=== PATIENT | male | born 1965 | race Caucasian/White ===

== ENCOUNTER 2016-12-10 09:54 | Emergency (ER) | payer OTHER ==
[2016-12-10] MEDS ORDERED: MECLIZINE 12.5 MG TAB PO STA (10:06)
[2016-12-10] MEDS ORDERED: SODIUM CHLORIDE 0.9% 1,000 ML IV STA (10:06)
[2016-12-10 10:07] VITALS: RESP 18
[2016-12-10 10:30] LABS: Basophils % (A) 0 %; CH 30.3; Eosinophils # (A) 0.9 k/uL (0-0.7); Eosinophils % (A) 7 %; HGB 15.2 gm/dL (13.0-17.5); Luc # (Auto) 0.13; Luc % (Auto) 1; Lymphocytes # (A) 1.7 k/uL (1.0-4.8); Lymphocytes % (A) 14 %; MCH 30.1 pg (25.0-35.0); MCHC 33.7 g/dL (31.0-37.0); MCV 89.3 fL (80.0-100.0); Mean Platelet Volume 7.1; Monocytes # (A) 0.7 k/uL (0-1.0); Monocytes % (A) 6 %; Neutrophils # (A) 9.2 k/uL (1.3-7.7); Neutrophils % (A) 73 %; RBC 5.04 m/uL (4.30-5.90); RDW 13.6 % (11.5-15.5); WBC 12.7 k/uL (3.8-10.6); WBC (Perox) 12.73
[2016-12-10 10:44] LABS: ALT 89 U/L (21-72); AST 41 U/L (17-59); Alkaline Phosphatase 108 U/L (38-126); Anion Gap 17 mmol/L; Blood Urea Nitrogen 20 mg/dL (9-20); Calcium 10.3 mg/dL (8.4-10.2); Carbon Dioxide 27 mmol/L (22-30); Chloride 95 mmol/L (98-107); Glucose 130 mg/dL (74-99); Non-African American GFR(MDRD) >60 (>60 ml/min/1.73 sqM); Potassium 3.8 mmol/L (3.5-5.1); Sodium 139 mmol/L (137-145); Total Bilirubin 0.7 mg/dL (0.2-1.3); Total Protein 8.3 g/dL (6.3-8.2)
--- NOTE | 2016-12-10 10:52 | ED ---
Dizziness HPI - General Chief Complaint: Dizziness Stated Complaint: DIZZINESS, HOT AND COLD, VOMITING BLOOD Time Seen by Provider: 12/10/16 10:00 Source: patient, family, RN notes reviewed Mode of arrival: wheelchair Limitations: no limitations - History of Present Illness Initial Comments: This is a 51-year-old male who had a recent diagnosis of Parkinson's disease and diabetes who had an onset last night of not feeling well. He developed dizziness and lightheadedness. Off-balance had nausea vomiting he did vomit 3 times today. He states he has chronic chest pain today is nothing out of the ordinary. He denies any recent cold or flu he states he does get more dizzy when he moves his head and gets up from a sitting position or lying position. No focal deficits he does have tremors associated with his Parkinson's disease. He denies any other complaints patient is very hard of hearing. The patient does state that when he vomited he vomited up some red material but he believes is secondary to berries he ate last night. MD Complaint: dizziness, lightheadedness, difficulty walking - Related Data Home Medications Medication Instructions Recorded Confirmed Amoxicillin/Potassium Clav 1 tab PO Q12HR 12/10/16 12/10/16 [Augmentin 875-125 Tablet] Aspirin EC [Ecotrin Low Dose] 81 mg PO DAILY 12/10/16 12/10/16 Lisinopril-Hctz 20-25 mg 1 tab PO DAILY 12/10/16 12/10/16 [Zestoretic 20-25] Primidone [Mysoline] 50 mg PO BID 12/10/16 12/10/16 metFORMIN HCL 1,000 mg PO BID 12/10/16 12/10/16 Previous Rx's Medication Instructions Recorded Meclizine [Antivert] 25 mg PO TID #20 tab 12/10/16 Pantoprazole Sodium [Protonix] 20 mg PO AC-BID #14 tablet. 12/10/16 Allergies Allergy/AdvReac Type Severity Reaction Status Date / Time No Known Allergies Allergy Verified 12/10/16 10:28 Review of Systems ROS Statement: Those systems with pertinent positive or pertinent negative responses have been documented in the HPI. ROS Other: All systems not noted in ROS Statement are negative. Past Medical History Past Medical History: Diabetes Mellitus, Hypertension Additional Past Medical History / Comment(s): Parkinsons, diverticulitis, [place] History of Any Multi-Drug Resistant Organisms: None Reported Additional Past Surgical History / Comment(s): c5/c6 cadaver bone, vasectomy Past Psychological History: Anxiety, Depression Smoking Status: Former smoker Past Alcohol Use History: None Reported Past Drug Use History: None Reported General Exam - General Exam Comments Initial Comments: Is a well-developed well-nourished awake alert oriented 3 male he is very anxious he does demonstrate tremors consistent with Parkinson's disease Limitations: no limitations General appearance: alert, anxious Head exam: Present: atraumatic, normocephalic, normal inspection Eye exam: Present: normal appearance, PERRL, EOMI. Absent: scleral icterus, conjunctival injection, periorbital swelling ENT exam: Present: normal exam, mucous membranes moist Neck exam: Present: normal inspection. Absent: tenderness, meningismus, lymphadenopathy Respiratory exam: Present: normal lung sounds bilaterally. Absent: respiratory distress, wheezes, rales, rhonchi, stridor Cardiovascular Exam: Present: regular rate, normal rhythm, normal heart sounds. Absent: systolic murmur, diastolic murmur, rubs, gallop, clicks GI/Abdominal exam: Present: soft, normal bowel sounds. Absent: distended, tenderness, guarding, rebound, rigid Extremities exam: Present: full ROM, normal capillary refill, other (Tremors as stated above). Absent: tenderness, pedal edema, joint swelling, calf tenderness Back exam: Present: normal inspection Neurological exam: Present: alert, oriented X3, CN II-XII intact Psychiatric exam: Present: normal affect, anxious Skin exam: Present: warm, dry, intact, normal color. Absent: rash Course Vital Signs 12/10/16 10:00 Temperature 97.1 F L Pulse Rate 92 Respiratory 18 Rate Blood Pressure 163/116 O2 Sat by Pulse 100 Oximetry Medical Decision Making - Medical Decision Making Patient is feeling much improved his symptoms have totally resolved he will be discharged with appropriate medication the vomiting the patient did experience with the red material is likely Berries he will be placed on a short course of Prilosec. - Lab Data Result diagrams: 12/10/16 10:15 12/10/16 10:15 Lab Results 12/10/16 12/10/16 12/10/16 Range/Units 10:15 10:15 10:15 WBC 12.7 H (3.8-10.6) k/uL RBC 5.04 (4.30-5.90) m/uL Hgb 15.2 (13.0-17.5) gm/dL Hct 45.0 (39.0-53.0) % MCV 89.3 (80.0-100.0) fL MCH 30.1 (25.0-35.0) pg MCHC 33.7 (31.0-37.0) g/dL RDW 13.6 (11.5-15.5) % Plt Count 416 (150-450) k/uL Neutrophils % 73 % Lymphocytes % 14 % Monocytes % 6 % Eosinophils % 7 % Basophils % 0 % Neutrophils # 9.2 H (1.3-7.7) k/uL Lymphocytes # 1.7 (1.0-4.8) k/uL Monocytes # 0.7 (0-1.0) k/uL Eosinophils # 0.9 H (0-0.7) k/uL Basophils # 0.0 (0-0.2) k/uL Sodium 139 (137-145) mmol/L Potassium 3.8 (3.5-5.1) mmol/L Chloride 95 L (98-107) mmol/L Carbon Dioxide 27 (22-30) mmol/L Anion Gap 17 mmol/L BUN 20 (9-20) mg/dL Creatinine 0.96 (0.66-1.25) mg/dL Est GFR (MDRD) Af Amer >60 (>60 ml/min/1.73 sqM) Est GFR (MDRD) Non-Af >60 (>60 ml/min/1.73 sqM) Glucose 130 H (74-99) mg/dL Calcium 10.3 H (8.4-10.2) mg/dL Magnesium 2.0 (1.6-2.3) mg/dL Total Bilirubin 0.7 (0.2-1.3) mg/dL AST 41 (17-59) U/L ALT 89 H (21-72) U/L Alkaline Phosphatase 108 (38-126) U/L Total Creatine Kinase 322 H (55-170) U/L CK-MB (CK-2) 3.1 H* (0.0-2.4) ng/mL CK-MB (CK-2) Rel Index 1.0 Troponin I <0.012 (0.000-0.034) ng/mL Total Protein 8.3 H (6.3-8.2) g/dL Albumin 4.8 (3.5-5.0) g/dL - Radiology Data Radiology results: report reviewed, image reviewed (I did review the imaging and report. No acute findings.) Disposition Clinical Impression: Benign paroxysmal positional vertigo, Gastritis Disposition: HOME SELF-CARE Condition: Good Instructions: Dizziness (ED), Benign Paroxysmal Positional Vertigo (ED), Gastritis (ED) Additional Instructions: Continue with your current medications, increase oral fluids Prescriptions: Meclizine [Antivert] 25 mg PO TID #20 tab Pantoprazole Sodium [Protonix] 20 mg PO AC-BID #14 tablet.
[2016-12-10 11:00] LABS: Creatine Kinase 322 U/L (55-170)
[2016-12-10 11:13] LABS: Troponin I <0.012 ng/mL (0.000-0.034)
--- NOTE | 2016-12-10 11:14 | CT ---
EXAMINATION TYPE: CT brain wo con DATE OF EXAM: 12/10/2016 10:41 AM COMPARISON: NONE HISTORY: Dizziness. Vomiting blood. CT DLP: 1029.90 mGycm Automated exposure control for dose reduction was used. FINDINGS: There is no acute intracranial hemorrhage, mass effect, or midline shift identified. The ventricles and sulci are within normal limits in size. The globes are intact and the visualized sinuses are rem arkable for possible mucus retention cyst in the sphenoid, there is inflammatory changes within the e thmoid air cells, maxillary sinus, difficult to exclude underlying polyp. IMPRESSION: No acute intracranial hemorrhage, mass effect, or midline shift is seen. Additional findings above.
--- NOTE | 2016-12-10 11:15 | XR ---
EXAMINATION TYPE: XR chest 2V DATE OF EXAM: 12/10/2016 10:41 AM COMPARISON: NONE HISTORY: Dizziness and nausea TECHNIQUE: Frontal and lateral views of the chest are obtained. FINDINGS: There is no focal air space opacity, pleural effusion, or pneumothorax seen. The cardiac silhouette size is within normal limits. Prominent lung volume could be indicative of underlying CO PD. There are overlying cardiac leads. The stomach change noted in the cervical spine. The osseous st ructures are intact. IMPRESSION: No acute cardiopulmonary process.
[2016-12-10 11:27] LABS: Creatine Kinase MB 3.1 ng/mL (0.0-2.4)
--- NOTE | 2016-12-10 12:36 | ED ---
Medical Decision Making - Lab Data Result diagrams: 12/10/16 10:15 12/10/16 10:15 Lab Results 12/10/16 12/10/16 12/10/16 Range/Units 10:15 10:15 10:15 WBC 12.7 H (3.8-10.6) k/uL RBC 5.04 (4.30-5.90) m/uL Hgb 15.2 (13.0-17.5) gm/dL Hct 45.0 (39.0-53.0) % MCV 89.3 (80.0-100.0) fL MCH 30.1 (25.0-35.0) pg MCHC 33.7 (31.0-37.0) g/dL RDW 13.6 (11.5-15.5) % Plt Count 416 (150-450) k/uL Neutrophils % 73 % Lymphocytes % 14 % Monocytes % 6 % Eosinophils % 7 % Basophils % 0 % Neutrophils # 9.2 H (1.3-7.7) k/uL Lymphocytes # 1.7 (1.0-4.8) k/uL Monocytes # 0.7 (0-1.0) k/uL Eosinophils # 0.9 H (0-0.7) k/uL Basophils # 0.0 (0-0.2) k/uL Sodium 139 (137-145) mmol/L Potassium 3.8 (3.5-5.1) mmol/L Chloride 95 L (98-107) mmol/L Carbon Dioxide 27 (22-30) mmol/L Anion Gap 17 mmol/L BUN 20 (9-20) mg/dL Creatinine 0.96 (0.66-1.25) mg/dL Est GFR (MDRD) Af Amer >60 (>60 ml/min/1.73 sqM) Est GFR (MDRD) Non-Af >60 (>60 ml/min/1.73 sqM) Glucose 130 H (74-99) mg/dL Calcium 10.3 H (8.4-10.2) mg/dL Magnesium 2.0 (1.6-2.3) mg/dL Total Bilirubin 0.7 (0.2-1.3) mg/dL AST 41 (17-59) U/L ALT 89 H (21-72) U/L Alkaline Phosphatase 108 (38-126) U/L Total Creatine Kinase 322 H (55-170) U/L CK-MB (CK-2) 3.1 H* (0.0-2.4) ng/mL CK-MB (CK-2) Rel Index 1.0 Troponin I <0.012 (0.000-0.034) ng/mL Total Protein 8.3 H (6.3-8.2) g/dL Albumin 4.8 (3.5-5.0) g/dL - EKG Data -: EKG Interpreted by Me EKG shows normal: sinus rhythm (Sinus rhythm of 88 QRS 84 daily since QTC of 358 /433 marked artifact is present due to the Parkinson's disease.) Disposition Clinical Impression: Benign paroxysmal positional vertigo, Gastritis Disposition: HOME SELF-CARE Condition: Good Instructions: Gastritis (ED), Benign Paroxysmal Positional Vertigo (ED), Dizziness (ED) Additional Instructions: Continue with your current medications, increase oral fluids Prescriptions: Meclizine [Antivert] 25 mg PO TID #20 tab Pantoprazole Sodium [Protonix] 20 mg PO AC-BID #14 tablet.dr Referrals: Elle Cheney MD [Primary Care Provider] - 1-2 days
[2016-12-10 12:45] VITALS: BP 124/70; PULSE 72; TEMP 97.6
== END 2016-12-10 12:45 | disposition home or self-care (01) ==
LOC: EC 09:54
DX: H81.10 Benign paroxysmal vertigo, unspecified ear (principal); K29.70 Gastritis, unspecified, without bleeding; G20 Parkinson's disease; E11.9 Type 2 diabetes mellitus without complications; R07.9 Chest pain, unspecified; Z79.82 Long term (current) use of aspirin; Z79.899 Other long term (current) drug therapy; Z79.84 Long term (current) use of oral hypoglycemic drugs; I10 Essential (primary) hypertension; Z87.891 Personal history of nicotine dependence
CPT/HCPCS: 36415; 70450; 71020; 80053; 82550; 82553; 83735; 84484; 85025; 93005; 96360; 96361; 99284